=== PATIENT | male | born 1960 | race Caucasian/White ===

== ENCOUNTER 2017-10-26 01:12 | Emergency (ER) | payer OTHER ==
[~2017-10-26] VITALS: Ht 165.1 cm; Wt 93.4 kg
[2017-10-26 01:16] VITALS: Ht 165.1 cm; Wt 93.4 kg
[2017-10-26 02:13] LABS: CALCIUM 8.5 mg/dL (8.5-10.1); CREATININE SERUM 2.6 mg/dL (0.7-1.3); POTASSIUM SERUM 4.5 mmol/L (3.5-5.1)
[2017-10-26 02:24] LABS: BASOPHIL % 1.2 % (0-2); PLATELET COUNT 265 x10^3mcL (130-400); RED CELL DISTRIBUTION WIDTH 12.8 % (11.5-14.5)
[2017-10-26 02:55] VITALS: BP 137/78
== END 2017-10-26 02:55 | disposition home or self-care (01) ==
LOC: ED 01:12
PROVIDERS: Emergency Medicine
DX: I12.9 Hypertensive chronic kidney disease with stage 1 through stage 4 chronic kidney disease, or unspecified chronic kidney disease (principal); E11.22 Type 2 diabetes mellitus with diabetic chronic kidney disease; N18.9 Chronic kidney disease, unspecified; E78.00 Pure hypercholesterolemia, unspecified; F41.1 Generalized anxiety disorder
CPT/HCPCS: 36415

== ENCOUNTER 2017-12-26 14:29 | Emergency (ER) | payer OTHER ==
[~2017-12-26] VITALS: Ht 165.1 cm; Wt 96.6 kg
[2017-12-26 15:40] LABS: CALCIUM 8.6 mg/dL (8.5-10.1); CREATININE SERUM 2.5 mg/dL (0.7-1.3); POTASSIUM SERUM 4.5 mmol/L (3.5-5.1)
[2017-12-26 16:33] VITALS: BP 178/98
== END 2017-12-26 16:33 | disposition home or self-care (01) ==
LOC: ED 14:29
PROVIDERS: Emergency Medicine
DX: S46.911A Strain of unspecified muscle, fascia and tendon at shoulder and upper arm level, right arm, initial encounter (principal); I10 Essential (primary) hypertension; E11.9 Type 2 diabetes mellitus without complications; E78.00 Pure hypercholesterolemia, unspecified; X58.XXXA Exposure to other specified factors, initial encounter; Y93.89 Activity, other specified; Y92.89 Other specified places as the place of occurrence of the external cause; Y99.8 Other external cause status
CPT/HCPCS: J3010

== ENCOUNTER 2018-08-25 13:48 | Inpatient (IN) | payer OTHER, MEDICAID | END 2018-08-29 16:58 | disposition home or self-care (01) | LOC: ED 13:48 → MU 18:59 → ED 13:48 → MU 18:59 → ED 13:48 → MU 18:59 → ED 13:48 → MU 18:59 → ED 13:48 → MU 18:59 → ED 13:48 → MU 18:59 → ED 13:48 → MU 18:59 → ED 13:48 → MU 18:59 → ED 13:48 → MU 18:59 → ED 13:48 → MU 18:59 → ED 13:48 → MU 18:59 → ED 13:48 → MU 18:59 → ED 13:48 → MU 18:59 | DX: E11.610 Type 2 diabetes mellitus with diabetic neuropathic arthropathy (principal); L97.429 Non-pressure chronic ulcer of left heel and midfoot with unspecified severity; A52.16 Charcot's arthropathy (tabetic); N18.4 Chronic kidney disease, stage 4 (severe); E11.621 Type 2 diabetes mellitus with foot ulcer; E11.22 Type 2 diabetes mellitus with diabetic chronic kidney disease; I12.9 Hypertensive chronic kidney disease with stage 1 through stage 4 chronic kidney disease, or unspecified chronic kidney disease; E78.5 Hyperlipidemia, unspecified; E11.65 Type 2 diabetes mellitus with hyperglycemia; Z89.421 Acquired absence of other right toe(s); Z79.4 Long term (current) use of insulin; Z68.34 Body mass index [BMI] 34.0-34.9, adult ==

== ENCOUNTER 2018-10-12 01:18 | Emergency (ER) | payer OTHER, MEDICAID ==
[~2018-10-12 01:18] MED LIST: BENAZEPRIL HYDR20 M1 PO; GABAPENTIN TAB600 M1 PO; HUMALOG MIX 75/10 ML SQ; HUMALOG MIX75/253 ML SQ; LOW DOSE ASPIRI81 MG PO; NOVI SQ
[2018-10-12 01:45] VITALS: Ht 165.1 cm
[2018-10-12 03:42] VITALS: BP 188/100
== END 2018-10-12 03:42 | disposition home or self-care (01) ==
LOC: ED 01:18
DX: J32.9 Chronic sinusitis, unspecified (principal); E78.00 Pure hypercholesterolemia, unspecified; N28.9 Disorder of kidney and ureter, unspecified
CPT/HCPCS: 87804

== ENCOUNTER 2018-11-18 19:11 | Emergency (ER) | payer OTHER, MEDICAID ==
[~2018-11-18] VITALS: Ht 172.7 cm; Wt 96.6 kg
[2018-11-18 19:23] VITALS: Ht 172.7 cm; Wt 96.6 kg
[2018-11-18 21:14] LABS: BASOPHIL % 0.3 % (0-2); PLATELET COUNT 201 x10^3mcL (130-400); RED CELL DISTRIBUTION WIDTH 13.5 % (11.5-14.5)
[2018-11-18 21:36] LABS: BILIRUBIN TOTAL 0.61 mg/dL (0.20-1.00); CALCIUM 8.5 mg/dL (8.5-10.1); CARBON DIOXIDE 23.6 mmol/L (21-32); CREATININE SERUM 3.3 mg/dL (0.7-1.3); POTASSIUM SERUM 3.5 mmol/L (3.5-5.1); TOTAL PROTEIN, SERUM 7.1 g/dL (6.4-8.2)
[2018-11-18 21:40] LABS: ALBUMIN 2.9 g/dL (3.4-5.0)
[2018-11-18 22:32] LABS: UA SPECIFIC GRAVITY 1.015 (1.005-1.035); microscopic required? YES; urine erythrocyte 2+ (NEGATIVE)
[2018-11-19 02:34] VITALS: BP 154/87
== END 2018-11-19 02:34 | disposition home or self-care (01) ==
LOC: ED 19:11
PROVIDERS: Emergency Medicine
DX: L03.116 Cellulitis of left lower limb (principal); I10 Essential (primary) hypertension; E11.9 Type 2 diabetes mellitus without complications; E78.00 Pure hypercholesterolemia, unspecified; Z98.890 Other specified postprocedural states
CPT/HCPCS: 87804; J0696; J7030; Q0092

== ENCOUNTER 2018-11-21 21:25 | Emergency (ER) | payer OTHER, MEDICAID ==
[~2018-11-21] VITALS: Ht 165.1 cm; Wt 93.0 kg
[2018-11-21 21:44] VITALS: BP 148/79; Ht 165.1 cm; Wt 93.0 kg
== END 2018-11-21 22:48 | disposition home or self-care (01) ==
LOC: ED 21:25
DX: L03.116 Cellulitis of left lower limb (principal); L97.529 Non-pressure chronic ulcer of other part of left foot with unspecified severity; E11.9 Type 2 diabetes mellitus without complications; E78.00 Pure hypercholesterolemia, unspecified; Z98.890 Other specified postprocedural states
CPT/HCPCS: 90715

== ENCOUNTER 2018-11-23 16:19 | Emergency (ER) | payer OTHER, MEDICAID ==
[~2018-11-23] VITALS: Ht 165.1 cm; Wt 93.4 kg
[2018-11-23 16:36] VITALS: BP 152/80; Ht 165.1 cm; Wt 93.4 kg
== END 2018-11-23 17:48 | disposition home or self-care (01) ==
LOC: ED 16:19
DX: S91.302D Unspecified open wound, left foot, subsequent encounter (principal); I10 Essential (primary) hypertension; E11.9 Type 2 diabetes mellitus without complications; E78.00 Pure hypercholesterolemia, unspecified; X58.XXXD Exposure to other specified factors, subsequent encounter